=== PATIENT | female | born 1955 | race Caucasian/White ===

== ENCOUNTER 2017-09-05 20:10 | Emergency (ER) | payer MEDICARE, MEDICAID ==
[~2017-09-05] VITALS: Ht 5619.3 cm; Wt 38.4 kg
[~2017-09-05 20:10] MED LIST: ALB0.5UD IH; ATOR20TA PO; BAC10T PO; CALCIUM PO; CHOL4PAC2 PO; CLON1TAB4 PO; COM10T PO; ESCI10TA PO; FAMO-1 PO; FERR325T39 PO; FLUT1DIS4 INH; HYDR-565 PO; MULT-1085 PO; NITR100C6 PO; RANI-366 PO; ROPI3TAB PO; SUMA25TA35 PO; VITAMIN D3 PO
[2017-09-05] MEDS ORDERED: HYDROmorphone 2mg tablet PO ONE (22:25)
[2017-09-05 23:29] VITALS: BP 101/63
== END 2017-09-05 23:34 | disposition home or self-care (01) ==
LOC: ER 20:10
DX: M48.56XA Collapsed vertebra, not elsewhere classified, lumbar region, initial encounter for fracture (principal); G89.29 Other chronic pain; E78.00 Pure hypercholesterolemia, unspecified; J44.9 Chronic obstructive pulmonary disease, unspecified; K21.9 Gastro-esophageal reflux disease without esophagitis; E03.9 Hypothyroidism, unspecified; M81.0 Age-related osteoporosis without current pathological fracture; Z86.73 Personal history of transient ischemic attack (TIA), and cerebral infarction without residual deficits; Z90.49 Acquired absence of other specified parts of digestive tract; Z90.710 Acquired absence of both cervix and uterus; Z98.890 Other specified postprocedural states; Z88.0 Allergy status to penicillin; Z88.5 Allergy status to narcotic agent; Z88.1 Allergy status to other antibiotic agents; Z88.8 Allergy status to other drugs, medicaments and biological substances; Z79.899 Other long term (current) drug therapy
CPT/HCPCS: 72100; 99284

== ENCOUNTER 2017-10-29 06:33 | Day surgery (SDC) | payer MEDICARE, MEDICAID ==
[2017-10-29] VITALS (8 sets, daily range): BP systolic 115–137; BP diastolic 68–88
[~2017-10-29] VITALS: Ht 170.2 cm; Wt 37.9 kg
[~2017-10-29 06:33] MED LIST changes: -BAC10T PO; +BUPR100T13 PO; +BUPR1FIL5 SL; +BUPR75TA8 PO; -CHOL4PAC2 PO; +CIPR-230 PO; +DEXL60CA3 PO; +GABA-530 PO; +HYDR-3686 PO; +LOPE-155 PO; -NITR100C6 PO; +PREG50CA PO; +TIZA4CAP PO
[2017-10-29] MEDS ORDERED: clindamycin 600mg/D5W 50ml 50 ML IV ONE ×2 (06:48→08:54)
[2017-10-29] MEDS ORDERED: normal saline 1000ml 1,000 ML IV SCH ×2 (06:50→10:24)
[2017-10-29 07:13] LABS: BASOPHILS % (AUTO) 0.4 % (0-1); EOSINOPHILS # (AUTO) 0.7 X10'3 (0-0.9); EOSINOPHILS % (AUTO) 7.6 % (0-6); HEMATOCRIT 29.6 % (35.0-45.0); LYMPHOCYTES # (AUTO) 2.1 X10'3 (1.1-4.8); LYMPHOCYTES % (AUTO) 23.8 % (21-51); MEAN CORPUSCULAR HEMOGLOBIN 32.3 PG (27.0-31.0); MEAN CORPUSCULAR HGB CONC 33.7 % (33.0-36.5); MEAN CORPUSCULAR VOLUME 95.9 FL (78-98); MEAN PLATELET VOLUME 6.3 FL (7.4-10.4); MONOCYTES # (AUTO) 0.8 X10'3 (0-0.9); MONOCYTES % (AUTO) 8.6 % (2-12); NEUTROPHILS # (AUTO) 5.3 X10'3 (1.8-7.7); NEUTROPHILS % (AUTO) 59.6 % (42-75); PLATELET COUNT 549 X10'3 (140-440); RED BLOOD COUNT 3.08 X10'6 (4.20-5.60); RED CELL DISTRIBUTION WIDTH 16.5 % (11.5-14.5); WHITE BLOOD COUNT 8.9 X10'3 (4.5-11.0)
[2017-10-29] MEDS ORDERED: IBUP-1984 PO (07:17)
[2017-10-29] MEDS ORDERED: ARIP5TAB4 PO (07:17)
[2017-10-29] MEDS ORDERED: LIDOcaine 1%/PF (10mg/ml) 5ml vial SQ ONE (08:35)
[2017-10-29] MEDS ORDERED: diphenhydrAMINE 50 mg/ml inj IV ONE (08:35)
[2017-10-29] MEDS ORDERED: fentaNYL/PF 50MCG/1 ML 2ML syringe IV PRN (08:35)
[2017-10-29] MEDS ORDERED: midazolam 2 mg/2 ml injection IV PRN (08:35)
[2017-10-29] MEDS ORDERED: LIDOcaine 1%/PF (10mg/ml) 5ml vial ONE (08:46)
[2017-10-29] MEDS ORDERED: iohexol 300 MG/1 ML 50ml polymer ONE (08:46)
[2017-10-29] MEDS ORDERED: diphenhydrAMINE 50 mg/ml inj ONE (08:53)
[2017-10-29] MEDS ORDERED: midazolam 2 mg/2 ml injection ONE ×2 (08:54→09:34)
[2017-10-29] MEDS ORDERED: fentaNYL/PF 50MCG/1 ML 2ML syringe ONE ×2 (08:54→09:34)
== END 2017-10-29 12:15 | disposition home or self-care (01) ==
LOC: SSTAY O 06:33
PROVIDERS: ATTEND Radiology Vascular & Interventional Radiology
DX: M48.56XA Collapsed vertebra, not elsewhere classified, lumbar region, initial encounter for fracture (principal); M81.0 Age-related osteoporosis without current pathological fracture; E03.9 Hypothyroidism, unspecified; H44.9 Unspecified disorder of globe; K21.9 Gastro-esophageal reflux disease without esophagitis; M79.7 Fibromyalgia; E78.00 Pure hypercholesterolemia, unspecified; F41.9 Anxiety disorder, unspecified; J44.9 Chronic obstructive pulmonary disease, unspecified; E11.9 Type 2 diabetes mellitus without complications; F17.210 Nicotine dependence, cigarettes, uncomplicated; F32.9 Major depressive disorder, single episode, unspecified; Z88.0 Allergy status to penicillin; Z88.8 Allergy status to other drugs, medicaments and biological substances; Z86.74 Personal history of sudden cardiac arrest; Z72.89 Other problems related to lifestyle; Z88.1 Allergy status to other antibiotic agents; Z79.1 Long term (current) use of non-steroidal anti-inflammatories (NSAID); Z68.1 Body mass index [BMI] 19.9 or less, adult; Z85.41 Personal history of malignant neoplasm of cervix uteri; Z90.49 Acquired absence of other specified parts of digestive tract; Z86.73 Personal history of transient ischemic attack (TIA), and cerebral infarction without residual deficits; Z90.710 Acquired absence of both cervix and uterus; Z88.5 Allergy status to narcotic agent; Z79.891 Long term (current) use of opiate analgesic; Z79.899 Other long term (current) drug therapy; Z98.890 Other specified postprocedural states
CPT/HCPCS: 22514; 22515; 36415; 85025; 99152; 99153; J1200; J2001; J2250; J3010; J3490; J7030; Q9967; 88173; 88305; A4620

== ENCOUNTER 2017-12-08 15:41 | Inpatient (IN) | payer MEDICARE, MEDICAID ==
[~2017-12-08] VITALS: Ht 170.2 cm; Wt 39.5 kg
[~2017-12-08 15:41] MED LIST changes: +ARIP5TAB4 PO; -BUPR1FIL5 SL; -BUPR75TA8 PO; -CIPR-230 PO; +CLON-371 PO; -CLON1TAB4 PO; -FAMO-1 PO; -HYDR-565 PO; +IBUP-1984 PO
[2017-12-08] MEDS ORDERED: dexamethasone sod phosphate 10mg/ml inj IV STA (16:14)
[2017-12-08] MEDS ORDERED: normal saline 1000ML IV soln IV ONE (16:15)
[2017-12-08] MEDS ORDERED: CefTRIAXone 2gm/D5W 50ml 50 ML IV ONE (16:20)
[2017-12-08] MEDS ORDERED: fentaNYL/PF 50MCG/1 ML 2ML syringe IV ONE ×2 (16:30→17:40)
[2017-12-08] MEDS ORDERED: iohexol 350MG/ML 100ml bottle IV ONE (16:31)
[2017-12-08 16:40] LABS: BASOPHILS % (AUTO) 0.2 % (0-1); EOSINOPHILS # (AUTO) 0.8 X10'3 (0-0.9); EOSINOPHILS % (AUTO) 4.6 % (0-6); HEMATOCRIT 25.3 % (35.0-45.0); HEMOGLOBIN 8.4 g/dl (12.0-16.0); LYMPHOCYTES # (AUTO) 1.2 X10'3 (1.1-4.8); LYMPHOCYTES % (AUTO) 6.7 % (21-51); MEAN CORPUSCULAR HEMOGLOBIN 31.8 PG (27.0-31.0); MEAN CORPUSCULAR HGB CONC 33.4 % (33.0-36.5); MEAN CORPUSCULAR VOLUME 95.3 FL (78-98); MEAN PLATELET VOLUME 6.3 FL (7.4-10.4); MONOCYTES # (AUTO) 0.4 X10'3 (0-0.9); MONOCYTES % (AUTO) 2.3 % (2-12); NEUTROPHILS # (AUTO) 15.1 X10'3 (1.8-7.7); NEUTROPHILS % (AUTO) 86.2 % (42-75); PLATELET COUNT 627 X10'3 (140-440); RED BLOOD COUNT 2.66 X10'6 (4.20-5.60); RED CELL DISTRIBUTION WIDTH 16.4 % (11.5-14.5); WHITE BLOOD COUNT 17.5 X10'3 (4.5-11.0)
[2017-12-08 16:55] LABS: ALANINE AMINOTRANSFERASE 9 U/L (12-78); ALBUMIN 2.7 G/DL (3.4-5.0); ALBUMIN/GLOBULIN RATIO 0.7 (1.1-1.5); ALKALINE PHOSPHATASE 93 IU/L (46-116); ANION GAP 10 (8-16); ASPARTATE AMINO TRANSFERASE 15 U/L (10-37); BILIRUBIN,TOTAL 0.4 MG/DL (0.1-1.0); BLOOD UREA NITROGEN 17 MG/DL (7-18); BUN/CREATININE RATIO 12.1 (6.6-38.0); CALCIUM 8.4 MG/DL (8.5-10.1); CHLORIDE 98 MMOL/L (99-107); CREATININE 1.41 MG/DL (0.40-0.90); GLUCOSE 118 MG/DL (70-104); POTASSIUM 3.7 MMOL/L (3.5-5.1); SODIUM 132 MMOL/L (135-145); TOTAL CARBON DIOXIDE 24.2 MMOL/L (24-32); TOTAL PROTEIN 6.8 G/DL (6.4-8.2); eGFR 38 ML/MIN
[2017-12-08] MEDS ORDERED: diatrozoate meglu/diatrozoate sod (37% iodine) 120ML oral solution ONE (18:36)
[2017-12-08] MEDS ORDERED: mag hydrox/Alum hydrox/simeth 30ml oral suspension PO PRN (20:30)
[2017-12-08] MEDS: normal saline 1000ml 1,000 ML IV SCH (20:30)
[2017-12-08] MEDS ORDERED: magnesium hydroxide 30ml (MOM) UD suspension PO PRN (20:30)
[2017-12-08] MEDS ORDERED: ondansetron/PF 4mg/2ml inj IV PRN (20:30)
[2017-12-08] MEDS ORDERED: HYDROcodone & chlorphen. 10-8mg/5ml oral susp. PO PRN (20:50)
[2017-12-08] MEDS ORDERED: ESCI20TA PO (21:05)
[2017-12-08] MEDS ORDERED: RANI150T44 PO (21:05)
[2017-12-08] MEDS ORDERED: LOPE1TAB46 PO (21:05)
[2017-12-08] MEDS ORDERED: ROPI3TAB PO (21:05)
[2017-12-08] MEDS ORDERED: CHOL400C8 PO (21:05)
[2017-12-08] MEDS ORDERED: NAPR220T67 PO (21:06)
[2017-12-08] MEDS ORDERED: hydrOXYzine 25 MG tablet PO PRN (21:40)
[2017-12-08] MEDS ORDERED: albuterol 2.5 MG/3 ML nebule NEB PRN ×2 (21:45→21:50)
[2017-12-08 23:00] VITALS: BP 126/75
[2017-12-08] MEDS: morphine 4 MG/ML inj SYRINge IV PRN (23:32)
[2017-12-08] MEDS: benzonatate 100mg capsule PO SCH (23:33)
[2017-12-09] MEDS: ROPINIRole 1mg tablet PO SCH ×4 (01:44→19:35)
[2017-12-09 05:03] LABS: BASOPHILS % (AUTO) 0 % (0-1); EOSINOPHILS # (AUTO) 0.1 X10'3 (0-0.9); EOSINOPHILS % (AUTO) 0.3 % (0-6); HEMATOCRIT 25.6 % (35.0-45.0); HEMOGLOBIN 8.5 g/dl (12.0-16.0); LYMPHOCYTES # (AUTO) 0.7 X10'3 (1.1-4.8); LYMPHOCYTES % (AUTO) 3.2 % (21-51); MEAN CORPUSCULAR HEMOGLOBIN 31.8 PG (27.0-31.0); MEAN CORPUSCULAR HGB CONC 33.1 % (33.0-36.5); MEAN CORPUSCULAR VOLUME 96.2 FL (78-98); MEAN PLATELET VOLUME 6.8 FL (7.4-10.4); MONOCYTES # (AUTO) 0.4 X10'3 (0-0.9); MONOCYTES % (AUTO) 1.8 % (2-12); NEUTROPHILS # (AUTO) 21.1 X10'3 (1.8-7.7); NEUTROPHILS % (AUTO) 94.7 % (42-75); PLATELET COUNT 617 X10'3 (140-440); RED BLOOD COUNT 2.66 X10'6 (4.20-5.60); RED CELL DISTRIBUTION WIDTH 15.8 % (11.5-14.5); WHITE BLOOD COUNT 22.3 X10'3 (4.5-11.0)
[2017-12-09] MEDS: morphine 4 MG/ML inj SYRINge IV PRN ×3 (05:13→19:33)
[2017-12-09 05:35] LABS: ALANINE AMINOTRANSFERASE 8 U/L (12-78); ALBUMIN 2.3 G/DL (3.4-5.0); ALBUMIN/GLOBULIN RATIO 0.6 (1.1-1.5); ALKALINE PHOSPHATASE 91 IU/L (46-116); ASPARTATE AMINO TRANSFERASE 14 U/L (10-37); BILIRUBIN,TOTAL 0.2 MG/DL (0.1-1.0); BLOOD UREA NITROGEN 15 MG/DL (7-18); CALCIUM 8.4 MG/DL (8.5-10.1); CHLORIDE 108 MMOL/L (99-107); CREATININE 1.15 MG/DL (0.40-0.90); GLUCOSE 139 MG/DL (70-104); POTASSIUM 4.1 MMOL/L (3.5-5.1); TOTAL CARBON DIOXIDE 25.4 MMOL/L (24-32); TOTAL PROTEIN 6.4 G/DL (6.4-8.2); eGFR 48 ML/MIN
[2017-12-09 05:47] LABS: ANION GAP 8 (8-16); SODIUM 141 MMOL/L (135-145)
[2017-12-09 07:00] VITALS: BP 115/73
[2017-12-09] MEDS: citalopram 20mg tablet PO SCH (08:56)
[2017-12-09] MEDS: benzonatate 100mg capsule PO SCH ×3 (08:56→21:29)
[2017-12-09] MEDS: buPROPion 100mg tablet PO SCH ×3 (08:56→21:28)
[2017-12-09] MEDS: clonazePAM 1mg tablet PO SCH ×2 (08:57→19:34)
[2017-12-09] MEDS: pantoprazole 40mg Tablet.DR PO SCH (08:57)
[2017-12-09] MEDS: atorvastatin 20mg tablet PO SCH (08:57)
[2017-12-09] MEDS: heparin, porcine 5000 units/ml vial SQ SCH ×2 (08:58→19:36)
[2017-12-09] MEDS: piperacillin/tazo 3.375gm/50ml 50 ML IV SCH ×2 (10:33→18:13)
[2017-12-09 11:00] VITALS: BP 103/57
[2017-12-09] MEDS: BUDESONIDE 0.25 MG/2 ML AMPUL.NEB IH SCH ×2 (11:00→19:53)
[2017-12-09] MEDS: albuterol 2.5 MG/3 ML nebule NEB SCH ×3 (11:00→23:54)
[2017-12-09 18:00] VITALS: BP 124/76
[2017-12-09] MEDS: lactobacillus rhamnosus 10,000 MMU CELLS/CAPSULE PO SCH (19:34)
[2017-12-09] MEDS: gabapentin 100mg capsule PO SCH (21:30)
[2017-12-10] VITALS: BP 106/59
[2017-12-10] MEDS: morphine 4 MG/ML inj SYRINge IV PRN ×2 (00:42→11:08)
[2017-12-10] MEDS: piperacillin/tazo 3.375gm/50ml 50 ML IV SCH ×3 (00:43→16:14)
[2017-12-10] MEDS: normal saline 1000ml 1,000 ML IV SCH (00:43)
[2017-12-10] MEDS: ROPINIRole 1mg tablet PO SCH (03:26)
[2017-12-10] MEDS: albuterol 2.5 MG/3 ML nebule NEB SCH ×6 (03:54→23:14)
[2017-12-10] MEDS: acetaminophen 325mg tablet PO PRN (05:20)
[2017-12-10 06:07] LABS: ALANINE AMINOTRANSFERASE 9 U/L (12-78); ALBUMIN/GLOBULIN RATIO 0.5 (1.1-1.5); ALKALINE PHOSPHATASE 110 IU/L (46-116); ANION GAP 8 (8-16); ASPARTATE AMINO TRANSFERASE 14 U/L (10-37); BILIRUBIN,TOTAL 0.4 MG/DL (0.1-1.0); BLOOD UREA NITROGEN 10 MG/DL (7-18); BUN/CREATININE RATIO 9.7 (6.6-38.0); CALCIUM 8.2 MG/DL (8.5-10.1); CHLORIDE 104 MMOL/L (99-107); CREATININE 1.03 MG/DL (0.40-0.90); GLUCOSE 94 MG/DL (70-104); POTASSIUM 3.3 MMOL/L (3.5-5.1); SODIUM 137 MMOL/L (135-145); TOTAL CARBON DIOXIDE 25.4 MMOL/L (24-32); eGFR 54 ML/MIN
[2017-12-10 06:39] LABS: BASOPHILS % (AUTO) 0.1 % (0-1); EOSINOPHILS # (AUTO) 1.2 X10'3 (0-0.9); EOSINOPHILS % (AUTO) 7.9 % (0-6); HEMATOCRIT 24.4 % (35.0-45.0); HEMOGLOBIN 8.1 g/dl (12.0-16.0); LYMPHOCYTES # (AUTO) 1.2 X10'3 (1.1-4.8); LYMPHOCYTES % (AUTO) 7.4 % (21-51); MEAN CORPUSCULAR HEMOGLOBIN 32.2 PG (27.0-31.0); MEAN CORPUSCULAR HGB CONC 33.3 % (33.0-36.5); MEAN CORPUSCULAR VOLUME 96.7 FL (78-98); MEAN PLATELET VOLUME 7.3 FL (7.4-10.4); MONOCYTES # (AUTO) 0.6 X10'3 (0-0.9); MONOCYTES % (AUTO) 3.9 % (2-12); NEUTROPHILS # (AUTO) 12.8 X10'3 (1.8-7.7); NEUTROPHILS % (AUTO) 80.7 % (42-75); PLATELET COUNT 579 X10'3 (140-440); RED BLOOD COUNT 2.52 X10'6 (4.20-5.60); RED CELL DISTRIBUTION WIDTH 15.6 % (11.5-14.5); WHITE BLOOD COUNT 15.8 X10'3 (4.5-11.0)
[2017-12-10 07:00] VITALS: BP 135/82
[2017-12-10] MEDS: BUDESONIDE 0.25 MG/2 ML AMPUL.NEB IH SCH ×2 (08:00→19:24)
[2017-12-10] MEDS: pantoprazole 40mg Tablet.DR PO SCH (08:20)
[2017-12-10] MEDS: heparin, porcine 5000 units/ml vial SQ SCH ×2 (08:20→19:49)
[2017-12-10] MEDS: buPROPion 100mg tablet PO SCH ×3 (08:21→21:45)
[2017-12-10] MEDS: citalopram 20mg tablet PO SCH (08:21)
[2017-12-10] MEDS: atorvastatin 20mg tablet PO SCH (08:21)
[2017-12-10] MEDS: lactobacillus rhamnosus 10,000 MMU CELLS/CAPSULE PO SCH ×2 (08:21→19:49)
[2017-12-10] MEDS: benzonatate 100mg capsule PO SCH ×3 (08:21→21:45)
[2017-12-10 11:00] VITALS: BP 134/68
[2017-12-10] MEDS ORDERED: potassium Cl 20 mEq SR tablet PO PRN (15:45)
[2017-12-10] MEDS ORDERED: potassium Cl 40MEQ/NS 500ml 500 ML IV PRN ×2 (15:45)
[2017-12-10] MEDS: potassium Cl 20 mEq SR tablet PO PRN ×3 (16:14→21:49)
[2017-12-10 18:00] VITALS: BP 104/70
[2017-12-10] MEDS ORDERED: HYDROmorphone 1 mg/ml syringe IV PRN (19:10)
[2017-12-10] MEDS: gabapentin 100mg capsule PO SCH (21:45)
[2017-12-10] MEDS: HYDROmorphone 1 mg/ml syringe IV PRN (21:49)
[2017-12-11] VITALS: BP 100/65
[2017-12-11] MEDS: piperacillin/tazo 3.375gm/50ml 50 ML IV SCH ×4 (00:36→23:02)
[2017-12-11] MEDS: HYDROmorphone 1 mg/ml syringe IV PRN ×5 (01:55→23:02)
[2017-12-11] MEDS: albuterol 2.5 MG/3 ML nebule NEB SCH ×6 (03:02→23:48)
[2017-12-11 06:23] LABS: BASOPHILS % (AUTO) 0.1 % (0-1); EOSINOPHILS # (AUTO) 1.3 X10'3 (0-0.9); EOSINOPHILS % (AUTO) 9.9 % (0-6); HEMATOCRIT 24.9 % (35.0-45.0); HEMOGLOBIN 8.4 g/dl (12.0-16.0); LYMPHOCYTES # (AUTO) 1.1 X10'3 (1.1-4.8); LYMPHOCYTES % (AUTO) 8.2 % (21-51); MEAN CORPUSCULAR HEMOGLOBIN 32.2 PG (27.0-31.0); MEAN CORPUSCULAR HGB CONC 33.9 % (33.0-36.5); MEAN PLATELET VOLUME 6.9 FL (7.4-10.4); MONOCYTES # (AUTO) 0.5 X10'3 (0-0.9); MONOCYTES % (AUTO) 3.9 % (2-12); NEUTROPHILS # (AUTO) 10.1 X10'3 (1.8-7.7); NEUTROPHILS % (AUTO) 77.9 % (42-75); PLATELET COUNT 594 X10'3 (140-440); RED BLOOD COUNT 2.62 X10'6 (4.20-5.60); RED CELL DISTRIBUTION WIDTH 16.3 % (11.5-14.5); WHITE BLOOD COUNT 12.9 X10'3 (4.5-11.0)
[2017-12-11 06:56] LABS: ALANINE AMINOTRANSFERASE 10 U/L (12-78); ALBUMIN/GLOBULIN RATIO 0.5 (1.1-1.5); ALKALINE PHOSPHATASE 106 IU/L (46-116); ANION GAP 6 (8-16); ASPARTATE AMINO TRANSFERASE 13 U/L (10-37); BILIRUBIN,TOTAL 0.4 MG/DL (0.1-1.0); BLOOD UREA NITROGEN 6 MG/DL (7-18); BUN/CREATININE RATIO 5.3 (6.6-38.0); CALCIUM 8.7 MG/DL (8.5-10.1); CHLORIDE 108 MMOL/L (99-107); CREATININE 1.14 MG/DL (0.40-0.90); GLUCOSE 82 MG/DL (70-104); MAGNESIUM 1.6 MG/DL (1.5-2.4); POTASSIUM 3.6 MMOL/L (3.5-5.1); SODIUM 142 MMOL/L (135-145); TOTAL PROTEIN 6.1 G/DL (6.4-8.2); eGFR 48 ML/MIN
[2017-12-11 07:00] VITALS: BP 124/75
[2017-12-11] MEDS: BUDESONIDE 0.25 MG/2 ML AMPUL.NEB IH SCH ×2 (07:33→19:37)
[2017-12-11] MEDS: citalopram 20mg tablet PO SCH (07:42)
[2017-12-11] MEDS: benzonatate 100mg capsule PO SCH ×3 (07:43→21:31)
[2017-12-11] MEDS: buPROPion 100mg tablet PO SCH ×3 (07:43→21:32)
[2017-12-11] MEDS: heparin, porcine 5000 units/ml vial SQ SCH ×2 (07:43→20:04)
[2017-12-11] MEDS: atorvastatin 20mg tablet PO SCH (07:43)
[2017-12-11] MEDS: lactobacillus rhamnosus 10,000 MMU CELLS/CAPSULE PO SCH ×2 (07:43→20:03)
[2017-12-11] MEDS: pantoprazole 40mg Tablet.DR PO SCH (07:43)
[2017-12-11 11:57] VITALS: BP 106/68
[2017-12-11 20:00] VITALS: BP 123/68
[2017-12-11] MEDS: acetaminophen 325mg tablet PO PRN (20:04)
[2017-12-11] MEDS ORDERED: PREGABALIN PO SCH (21:00)
[2017-12-11] MEDS: ROPINIRole 1mg tablet PO SCH (21:31)
[2017-12-11] MEDS: pregabalin 75mg capsule PO SCH (21:31)
[2017-12-11] MEDS: gabapentin 100mg capsule PO SCH (21:32)
[2017-12-11] MEDS ORDERED: HYDROmorphone inj. 0.5 MG/0.5 ML DISP.SYRIN IV ONE (21:45)
[2017-12-11] MEDS ORDERED: acetaminophen 325mg tablet PO PRN ×3 (21:45→23:35)
[2017-12-11] MEDS ORDERED: HYDROmorphone 1 mg/ml syringe ONE (21:54)
[2017-12-11] MEDS ORDERED: magnesium 4gm in 100ml NS 100 ML IV PRN (23:15)
[2017-12-12] VITALS: BP 109/68
[2017-12-12] MEDS: HYDROmorphone 1 mg/ml syringe IV PRN ×3 (03:33→21:13)
[2017-12-12] MEDS: albuterol 2.5 MG/3 ML nebule NEB SCH ×6 (03:50→23:05)
[2017-12-12 06:40] LABS: BASOPHILS % (AUTO) 0.1 % (0-1); EOSINOPHILS # (AUTO) 1.3 X10'3 (0-0.9); EOSINOPHILS % (AUTO) 9.8 % (0-6); HEMATOCRIT 25.1 % (35.0-45.0); HEMOGLOBIN 8.4 g/dl (12.0-16.0); LYMPHOCYTES # (AUTO) 1.1 X10'3 (1.1-4.8); MEAN CORPUSCULAR HEMOGLOBIN 31.8 PG (27.0-31.0); MEAN CORPUSCULAR HGB CONC 33.3 % (33.0-36.5); MEAN CORPUSCULAR VOLUME 95.4 FL (78-98); MEAN PLATELET VOLUME 6.9 FL (7.4-10.4); MONOCYTES # (AUTO) 0.8 X10'3 (0-0.9); MONOCYTES % (AUTO) 6.3 % (2-12); NEUTROPHILS # (AUTO) 9.9 X10'3 (1.8-7.7); NEUTROPHILS % (AUTO) 75.8 % (42-75); PLATELET COUNT 597 X10'3 (140-440); RED BLOOD COUNT 2.63 X10'6 (4.20-5.60); RED CELL DISTRIBUTION WIDTH 16.5 % (11.5-14.5); WHITE BLOOD COUNT 13.1 X10'3 (4.5-11.0)
[2017-12-12 07:04] LABS: ALANINE AMINOTRANSFERASE 11 U/L (12-78); ALBUMIN 1.9 G/DL (3.4-5.0); ALBUMIN/GLOBULIN RATIO 0.4 (1.1-1.5); ALKALINE PHOSPHATASE 128 IU/L (46-116); ANION GAP 10 (8-16); ASPARTATE AMINO TRANSFERASE 15 U/L (10-37); BILIRUBIN,TOTAL 0.3 MG/DL (0.1-1.0); BLOOD UREA NITROGEN 5 MG/DL (7-18); BUN/CREATININE RATIO 4.4 (6.6-38.0); CALCIUM 8.7 MG/DL (8.5-10.1); CHLORIDE 103 MMOL/L (99-107); CREATININE 1.14 MG/DL (0.40-0.90); GLUCOSE 92 MG/DL (70-104); MAGNESIUM 1.4 MG/DL (1.5-2.4); POTASSIUM 3.5 MMOL/L (3.5-5.1); SODIUM 139 MMOL/L (135-145); TOTAL CARBON DIOXIDE 26.3 MMOL/L (24-32); TOTAL PROTEIN 6.4 G/DL (6.4-8.2); eGFR 48 ML/MIN
[2017-12-12] MEDS: citalopram 20mg tablet PO SCH (07:32)
[2017-12-12] MEDS: ROPINIRole 1mg tablet PO SCH ×3 (07:32→20:53)
[2017-12-12] MEDS: buPROPion 100mg tablet PO SCH ×3 (07:32→20:53)
[2017-12-12] MEDS: benzonatate 100mg capsule PO SCH ×3 (07:32→20:53)
[2017-12-12] MEDS: heparin, porcine 5000 units/ml vial SQ SCH ×2 (07:33→20:52)
[2017-12-12] MEDS: atorvastatin 20mg tablet PO SCH (07:33)
[2017-12-12] MEDS: pantoprazole 40mg Tablet.DR PO SCH (07:33)
[2017-12-12] MEDS: lactobacillus rhamnosus 10,000 MMU CELLS/CAPSULE PO SCH ×2 (07:33→20:52)
[2017-12-12] MEDS: piperacillin/tazo 3.375gm/50ml 50 ML IV SCH ×2 (07:33→16:30)
[2017-12-12] MEDS: BUDESONIDE 0.25 MG/2 ML AMPUL.NEB IH SCH ×2 (07:48→19:56)
[2017-12-12 08:00] VITALS: BP 127/84
[2017-12-12 11:28] VITALS: BP 147/85
[2017-12-12] MEDS: magnesium Cl slow-release 64mg tablet PO PRN ×2 (12:46→21:13)
[2017-12-12] MEDS ORDERED: magnesium Cl slow-release 64mg tablet PO PRN (17:20)
[2017-12-12] MEDS ORDERED: magnesium/D5W IVPB 50 ML IV PRN (17:20)
[2017-12-12] MEDS ORDERED: magnesium 4gm in 100ml NS 100 ML IV PRN (17:20)
[2017-12-12 18:11] LABS: ABG BASE EXCESS -2.2 mmol/L (-2.0-3.0); ABG HCO3 22.2 mmol/L (22.0-26.0); ABG OXYGEN SATURATION 89.5 % (95-98); ABG PCO2 (T) 36.7 mmHg (32.0-45.0); ABG PO2 (T) 63.2 mmHg (83-108); ALLEN'S TEST Positive; FCOHb 0.5 % (0.5-1.5); FLOW 2 L/min; FMetHb 0.3 % (0.3-1.12); FO2Hb 88.8 % (94-100); TOTAL HEMOGLOBIN 11.6 G/dl (12.0-16.0)
[2017-12-12 18:50] LABS: C-REACTIVE PROTEIN 18.58 MG/DL (0.0-0.5); TROPONIN I < 0.04 NG/ML (0.0-0.05)
[2017-12-12 19:30] VITALS: BP 104/69
[2017-12-12] MEDS: doxycycline inj 100 MG in normal saline 100ml IV soln 100 ML IV SCH (20:52)
[2017-12-12] MEDS: methylPREDNISolone sod succ 125mg/2ml vial IV SCH (20:52)
[2017-12-12] MEDS: gabapentin 100mg capsule PO SCH (20:53)
[2017-12-12] MEDS: pregabalin 75mg capsule PO SCH (20:53)
[2017-12-12 23:55] VITALS: BP 132/74
[2017-12-13] MEDS: albuterol 2.5 MG/3 ML nebule NEB SCH ×4 (03:35→15:41)
[2017-12-13 05:48] LABS: BASOPHILS % (AUTO) 0 % (0-1); EOSINOPHILS # (AUTO) 0.2 X10'3 (0-0.9); EOSINOPHILS % (AUTO) 2.1 % (0-6); HEMATOCRIT 23.8 % (35.0-45.0); LYMPHOCYTES # (AUTO) 0.6 X10'3 (1.1-4.8); LYMPHOCYTES % (AUTO) 5.2 % (21-51); MEAN CORPUSCULAR HEMOGLOBIN 31.7 PG (27.0-31.0); MEAN CORPUSCULAR HGB CONC 33.5 % (33.0-36.5); MEAN CORPUSCULAR VOLUME 94.7 FL (78-98); MEAN PLATELET VOLUME 6.7 FL (7.4-10.4); MONOCYTES # (AUTO) 0.1 X10'3 (0-0.9); MONOCYTES % (AUTO) 1.2 % (2-12); NEUTROPHILS # (AUTO) 9.8 X10'3 (1.8-7.7); NEUTROPHILS % (AUTO) 91.5 % (42-75); PLATELET COUNT 601 X10'3 (140-440); RED BLOOD COUNT 2.52 X10'6 (4.20-5.60); WHITE BLOOD COUNT 10.7 X10'3 (4.5-11.0)
[2017-12-13 06:06] LABS: ALANINE AMINOTRANSFERASE < 6 U/L (12-78); ALBUMIN 1.9 G/DL (3.4-5.0); ALBUMIN/GLOBULIN RATIO 0.4 (1.1-1.5); ALKALINE PHOSPHATASE 127 IU/L (46-116); ANION GAP 11 (8-16); ASPARTATE AMINO TRANSFERASE 13 U/L (10-37); BILIRUBIN,TOTAL 0.2 MG/DL (0.1-1.0); BLOOD UREA NITROGEN 6 MG/DL (7-18); BUN/CREATININE RATIO 4.9 (6.6-38.0); CALCIUM 8.5 MG/DL (8.5-10.1); CHLORIDE 100 MMOL/L (99-107); CREATININE 1.23 MG/DL (0.40-0.90); GLUCOSE 201 MG/DL (70-104); MAGNESIUM 1.5 MG/DL (1.5-2.4); POTASSIUM 3.7 MMOL/L (3.5-5.1); SODIUM 136 MMOL/L (135-145); TOTAL PROTEIN 6.5 G/DL (6.4-8.2); eGFR 44 ML/MIN
[2017-12-13 07:04] VITALS: BP 117/76
[2017-12-13] MEDS: BUDESONIDE 0.25 MG/2 ML AMPUL.NEB IH SCH (07:14)
[2017-12-13] MEDS: pantoprazole 40mg Tablet.DR PO SCH (07:40)
[2017-12-13] MEDS: buPROPion 100mg tablet PO SCH ×2 (07:40→12:55)
[2017-12-13] MEDS: ROPINIRole 1mg tablet PO SCH ×2 (07:40→12:55)
[2017-12-13] MEDS: benzonatate 100mg capsule PO SCH ×2 (07:40→12:55)
[2017-12-13] MEDS: heparin, porcine 5000 units/ml vial SQ SCH (07:40)
[2017-12-13] MEDS: methylPREDNISolone sod succ 125mg/2ml vial IV SCH (07:40)
[2017-12-13] MEDS: citalopram 20mg tablet PO SCH (07:41)
[2017-12-13] MEDS: lactobacillus rhamnosus 10,000 MMU CELLS/CAPSULE PO SCH (07:41)
[2017-12-13] MEDS: atorvastatin 20mg tablet PO SCH (07:41)
[2017-12-13] MEDS: HYDROmorphone 1 mg/ml syringe IV PRN (07:44)
[2017-12-13] MEDS: doxycycline inj 100 MG in normal saline 100ml IV soln 100 ML IV SCH (07:46)
[2017-12-13] MEDS ORDERED: HYDROcodone/acetaminophen 5mg/325mg tablet PO PRN (10:55)
[2017-12-13 11:56] VITALS: BP 134/80
[2017-12-13] MEDS ORDERED: Protein Shake (high protein) 240ml (8oz) cup PO SCH (18:00)
== END 2017-12-13 16:10 | disposition home health service (06) | DRG 199 ==
LOC: ER 15:41 → ED HOLD 20:30 → SUR 3N 22:30
PROVIDERS: ADMIT Internal Medicine; ATTEND Family Medicine
DX: J98.2 Interstitial emphysema (principal); J18.9 Pneumonia, unspecified organism; E43 Unspecified severe protein-calorie malnutrition; J93.9 Pneumothorax, unspecified; Z68.1 Body mass index [BMI] 19.9 or less, adult; J44.0 Chronic obstructive pulmonary disease with (acute) lower respiratory infection; J44.1 Chronic obstructive pulmonary disease with (acute) exacerbation; M48.50XA Collapsed vertebra, not elsewhere classified, site unspecified, initial encounter for fracture; E03.9 Hypothyroidism, unspecified; E78.00 Pure hypercholesterolemia, unspecified; G89.29 Other chronic pain; K21.9 Gastro-esophageal reflux disease without esophagitis; M81.0 Age-related osteoporosis without current pathological fracture; R09.02 Hypoxemia; F32.9 Major depressive disorder, single episode, unspecified; F41.9 Anxiety disorder, unspecified; M54.9 Dorsalgia, unspecified; F17.200 Nicotine dependence, unspecified, uncomplicated; Z56.0 Unemployment, unspecified; Z90.710 Acquired absence of both cervix and uterus; Z88.0 Allergy status to penicillin; Z88.6 Allergy status to analgesic agent; Z88.1 Allergy status to other antibiotic agents; Z88.8 Allergy status to other drugs, medicaments and biological substances; Z79.899 Other long term (current) drug therapy; Z85.41 Personal history of malignant neoplasm of cervix uteri; Z86.73 Personal history of transient ischemic attack (TIA), and cerebral infarction without residual deficits
CPT/HCPCS: 36415; 36600; 70360; 70490; 71045; 71250; 74220; 80053; 82803; 82948; 83605; 83735; 83880; 84100; 84145; 84484; 85018; 85025; 85651; 86140; 87040; 87070; 93005; 94640; 94760; 96365; 96366; 96375; 96376; 99291; 99292; A4315; J0696; J1100; J1170; J1644; J2270; J2543; J2930; J3010; J3490; J7030; Q9963; Q9967

== ENCOUNTER 2017-12-30 10:21 | Emergency (ER) | payer MEDICARE, MEDICAID ==
[~2017-12-30] VITALS: Ht 160 cm; Wt 38.0 kg
[~2017-12-30 10:21] MED LIST changes: -ARIP5TAB4 PO; -ATOR20TA PO; -CALCIUM PO; -CLON-371 PO; -ESCI10TA PO; +ESCI20TA PO; -FERR325T39 PO; -GABA-530 PO; -IBUP-1984 PO; -LOPE-155 PO; +LOPE1TAB46 PO; -MULT-1085 PO; -RANI-366 PO; +RANI150T44 PO; -VITAMIN D3 PO
[2017-12-30 11:02] LABS: BASOPHILS % (AUTO) 0.1 % (0-1); EOSINOPHILS # (AUTO) 0.9 X10'3 (0-0.9); EOSINOPHILS % (AUTO) 6.2 % (0-6); HEMATOCRIT 29.1 % (35.0-45.0); HEMOGLOBIN 9.7 g/dl (12.0-16.0); LYMPHOCYTES # (AUTO) 1.7 X10'3 (1.1-4.8); LYMPHOCYTES % (AUTO) 11.6 % (21-51); MEAN CORPUSCULAR HEMOGLOBIN 30.9 PG (27.0-31.0); MEAN CORPUSCULAR HGB CONC 33.4 % (33.0-36.5); MEAN CORPUSCULAR VOLUME 92.6 FL (78-98); MEAN PLATELET VOLUME 6.6 FL (7.4-10.4); MONOCYTES # (AUTO) 0.9 X10'3 (0-0.9); MONOCYTES % (AUTO) 5.8 % (2-12); NEUTROPHILS # (AUTO) 11.2 X10'3 (1.8-7.7); NEUTROPHILS % (AUTO) 76.3 % (42-75); PLATELET COUNT 803 X10'3 (140-440); RED BLOOD COUNT 3.14 X10'6 (4.20-5.60); RED CELL DISTRIBUTION WIDTH 16.7 % (11.5-14.5); WHITE BLOOD COUNT 14.7 X10'3 (4.5-11.0)
[2017-12-30 11:18] LABS: ALANINE AMINOTRANSFERASE 11 U/L (12-78); ALBUMIN 2.5 G/DL (3.4-5.0); ALBUMIN/GLOBULIN RATIO 0.4 (1.1-1.5); ALKALINE PHOSPHATASE 117 IU/L (46-116); ANION GAP 2 (8-16); ASPARTATE AMINO TRANSFERASE 13 U/L (10-37); BILIRUBIN,TOTAL 0.3 MG/DL (0.1-1.0); BLOOD UREA NITROGEN 22 MG/DL (7-18); BUN/CREATININE RATIO 16.9 (6.6-38.0); CALCIUM 9.2 MG/DL (8.5-10.1); CHLORIDE 97 MMOL/L (99-107); GLUCOSE 100 MG/DL (70-104); SODIUM 135 MMOL/L (135-145); TOTAL CARBON DIOXIDE 36.3 MMOL/L (24-32); TOTAL PROTEIN 8.4 G/DL (6.4-8.2); eGFR 41 ML/MIN
[2017-12-30 11:25] LABS: INR 0.9 INR; PARTIAL THROMBOPLASTIN TIME 27 SECONDS (22-32); PROTHROMBIN TIME 9.8 SECONDS (9.0-12.0)
[2017-12-30] MEDS ORDERED: normal saline 1000ML IV soln IVB ONE (12:25)
[2017-12-30] MEDS ORDERED: fentaNYL/PF 50MCG/1 ML 2ML syringe IV ONE ×2 (12:25→13:30)
[2017-12-30] MEDS ORDERED: normal saline 1000ml 1,000 ML IV ONE (12:25)
[2017-12-30] MEDS ORDERED: CefTRIAXone/D5W-Rocephin 1gm 50 ML IV ONE (12:35)
[2017-12-30] MEDS ORDERED: azithromycin/NS 500mg/250ml 250 ML IV ONE (12:35)
[2017-12-30] MEDS ORDERED: acetaminophen 325mg tablet PO ONE ×2 (13:25)
[2017-12-30] MEDS ORDERED: morphine 4 MG/ML inj SYRINge IV ONE (14:50)
[2017-12-30] MEDS ORDERED: ondansetron/PF 4mg/2ml inj IV ONE (14:50)
[2017-12-30 15:24] LABS: CLARITY,URINE CLEAR (Clear); COLOR,URINE YELLOW (Yellow); GLUCOSE, URINE NEGATIVE (Neg); KETONES,URINE NEGATIVE (Neg); LEUKOCYTE ESTERASE ,URINE NEGATIVE (Neg); NITRITES, URINE NEGATIVE (Neg); OCCULT BLOOD,URINE NEGATIVE (Neg); PROTEIN,URINE 30 mg/dl (Neg); UROBILINOGEN,URINE 0.2 E.U/dL (0.2-1.0)
[2017-12-30 15:31] LABS: UA COLLECTION TYPE CLN CATCH MIDSTREAM
[2017-12-30 15:32] LABS: SQUAMOUS EPITHELIAL CELL,UR FEW /LPF (FEW)
[2017-12-30 15:33] LABS: AMORPHOUS PHOSPHATES 2+; BACTERIA,URINE 1+ /HPF (Neg); MUCUS STRANDS FEW /LPF (Neg)
[2017-12-30 15:34] LABS: RBC,URINE NONE SEEN /HPF (0-2); WBC,URINE NONE SEEN /HPF (0-4)
[2017-12-30] MEDS ORDERED: TRAM50TA2 PO (15:59)
[2017-12-30 16:30] VITALS: BP 110/76
== END 2017-12-30 16:54 | disposition home or self-care (01) ==
LOC: ER 10:21
DX: G89.29 Other chronic pain (principal); R06.02 Shortness of breath; R06.00 Dyspnea, unspecified; R05 Cough; R61 Generalized hyperhidrosis; R10.31 Right lower quadrant pain; E78.00 Pure hypercholesterolemia, unspecified; J44.9 Chronic obstructive pulmonary disease, unspecified; K21.9 Gastro-esophageal reflux disease without esophagitis; E03.9 Hypothyroidism, unspecified; Z90.49 Acquired absence of other specified parts of digestive tract; Z90.710 Acquired absence of both cervix and uterus; Z98.890 Other specified postprocedural states; Z56.0 Unemployment, unspecified; Z85.89 Personal history of malignant neoplasm of other organs and systems; M81.0 Age-related osteoporosis without current pathological fracture; Z86.73 Personal history of transient ischemic attack (TIA), and cerebral infarction without residual deficits; Z88.0 Allergy status to penicillin; Z88.5 Allergy status to narcotic agent; Z88.8 Allergy status to other drugs, medicaments and biological substances; Z79.899 Other long term (current) drug therapy
CPT/HCPCS: 36415; 71045; 71250; 74176; 80053; 81001; 83605; 84443; 84484; 85025; 85610; 85730; 87040; 93005; 96361; 96365; 96367; 96375; 96376; 99285; J0456; J0696; J2270; J2405; J3010; J7030

== ENCOUNTER 2018-03-23 15:00 | Emergency (ER) | payer MEDICARE, MEDICAID ==
[~2018-03-23] VITALS: Ht 170.2 cm; Wt 37.2 kg
[2018-03-23] MEDS ORDERED: HYDROcodone/acetaminophen 10/325mg tab PO ONE (17:15)
[2018-03-23 17:34] LABS: BASOPHILS % (AUTO) 0.2 % (0-1); EOSINOPHILS # (AUTO) 1.1 X10'3 (0-0.9); EOSINOPHILS % (AUTO) 9.5 % (0-6); HEMATOCRIT 31.3 % (35.0-45.0); HEMOGLOBIN 10.1 g/dl (12.0-16.0); LYMPHOCYTES # (AUTO) 2.3 X10'3 (1.1-4.8); MEAN CORPUSCULAR HEMOGLOBIN 28.6 PG (27.0-31.0); MEAN CORPUSCULAR HGB CONC 32.2 % (33.0-36.5); MEAN CORPUSCULAR VOLUME 88.6 FL (78-98); MEAN PLATELET VOLUME 6.7 FL (7.4-10.4); MONOCYTES # (AUTO) 0.9 X10'3 (0-0.9); MONOCYTES % (AUTO) 7.3 % (2-12); NEUTROPHILS # (AUTO) 7.4 X10'3 (1.8-7.7); PLATELET COUNT 471 X10'3 (140-440); RED BLOOD COUNT 3.53 X10'6 (4.20-5.60); RED CELL DISTRIBUTION WIDTH 17.9 % (11.5-14.5); WHITE BLOOD COUNT 11.7 X10'3 (4.5-11.0)
[2018-03-23] MEDS ORDERED: predniSONE 20 mg tablet PO ONE (17:45)
[2018-03-23] MEDS ORDERED: DOXYCYCLINE 100MG CAPSULE PO ONE (17:45)
[2018-03-23 17:46] LABS: INR 0.9 INR; PARTIAL THROMBOPLASTIN TIME 26 SECONDS (22-32); PROTHROMBIN TIME 9.7 SECONDS (9.0-12.0)
[2018-03-23] MEDS ORDERED: PRED50TA PO (17:47)
[2018-03-23] MEDS ORDERED: DOXY100C2 PO (17:47)
[2018-03-23 17:50] LABS: ALANINE AMINOTRANSFERASE 14 U/L (12-78); ALBUMIN 3.2 G/DL (3.4-5.0); ALBUMIN/GLOBULIN RATIO 0.7 (1.1-1.5); ALKALINE PHOSPHATASE 80 IU/L (46-116); ANION GAP 4 (8-16); ASPARTATE AMINO TRANSFERASE 16 U/L (10-37); BILIRUBIN,TOTAL 0.3 MG/DL (0.1-1.0); BLOOD UREA NITROGEN 13 MG/DL (7-18); BUN/CREATININE RATIO 14.9 (6.6-38.0); CALCIUM 9.3 MG/DL (8.5-10.1); CHLORIDE 98 MMOL/L (99-107); CREATININE 0.87 MG/DL (0.40-0.90); GLUCOSE 90 MG/DL (70-104); POTASSIUM 4.3 MMOL/L (3.5-5.1); SODIUM 136 MMOL/L (135-145); TOTAL CARBON DIOXIDE 34.4 MMOL/L (24-32); TOTAL PROTEIN 7.8 G/DL (6.4-8.2); eGFR 66 ML/MIN
[2018-03-23 18:40] VITALS: BP 115/74
== END 2018-03-23 18:42 | disposition home or self-care (01) ==
LOC: ER 15:02
DX: J18.1 Lobar pneumonia, unspecified organism (principal); M54.6 Pain in thoracic spine; E78.00 Pure hypercholesterolemia, unspecified; J44.9 Chronic obstructive pulmonary disease, unspecified; K21.9 Gastro-esophageal reflux disease without esophagitis; F17.210 Nicotine dependence, cigarettes, uncomplicated; E03.9 Hypothyroidism, unspecified; G89.29 Other chronic pain; M81.0 Age-related osteoporosis without current pathological fracture; Z86.73 Personal history of transient ischemic attack (TIA), and cerebral infarction without residual deficits; Z90.49 Acquired absence of other specified parts of digestive tract; Z90.710 Acquired absence of both cervix and uterus; Z98.890 Other specified postprocedural states; Z56.0 Unemployment, unspecified; Z88.0 Allergy status to penicillin; Z88.5 Allergy status to narcotic agent; Z88.6 Allergy status to analgesic agent; Z88.1 Allergy status to other antibiotic agents; Z79.899 Other long term (current) drug therapy
CPT/HCPCS: 36415; 71101; 80053; 85025; 85610; 85730; 93005; 99285; J7512

== ENCOUNTER 2018-10-27 20:38 | Emergency (ER) | payer MEDICARE, MEDICAID ==
[~2018-10-27] VITALS: Ht 170.2 cm; Wt 46.2 kg
[~2018-10-27 20:38] MED LIST changes: +PRED50TA PO
[2018-10-27 21:18] LABS: BASOPHILS % (AUTO) 0.3 % (0-1); EOSINOPHILS # (AUTO) 0.7 X10'3 (0-0.9); EOSINOPHILS % (AUTO) 4.7 % (0-6); HEMATOCRIT 31.8 % (35.0-45.0); HEMOGLOBIN 10.3 g/dl (12.0-16.0); LYMPHOCYTES # (AUTO) 2.8 X10'3 (1.1-4.8); LYMPHOCYTES % (AUTO) 19.4 % (21-51); MEAN CORPUSCULAR HEMOGLOBIN 29.6 PG (27.0-31.0); MEAN CORPUSCULAR HGB CONC 32.4 g/dL (33.0-36.5); MEAN CORPUSCULAR VOLUME 91.2 FL (78-98); MEAN PLATELET VOLUME 7.2 FL (7.4-10.4); MONOCYTES # (AUTO) 1.1 X10'3 (0-0.9); MONOCYTES % (AUTO) 7.4 % (2-12); NEUTROPHILS # (AUTO) 9.7 X10'3 (1.8-7.7); NEUTROPHILS % (AUTO) 68.2 % (42-75); PLATELET COUNT 414 X10'3 (140-440); RED BLOOD COUNT 3.49 X10'6 (4.20-5.60); RED CELL DISTRIBUTION WIDTH 16.7 % (11.5-14.5); WHITE BLOOD COUNT 14.3 X10'3 (4.5-11.0)
[2018-10-27 21:38] LABS: ALANINE AMINOTRANSFERASE 19 U/L (12-78); ALBUMIN 3.1 G/DL (3.4-5.0); ALBUMIN/GLOBULIN RATIO 0.8 (1.1-1.5); ALKALINE PHOSPHATASE 96 IU/L (46-116); ANION GAP 5 (8-16); ASPARTATE AMINO TRANSFERASE 19 U/L (10-37); BILIRUBIN,TOTAL 0.2 MG/DL (0.1-1.0); BLOOD UREA NITROGEN 13 MG/DL (7-18); BUN/CREATININE RATIO 13.3 (6.6-38.0); CALCIUM 9.1 MG/DL (8.5-10.1); CHLORIDE 101 MMOL/L (99-107); CREATININE 0.98 MG/DL (0.40-0.90); GLUCOSE 84 MG/DL (70-104); POTASSIUM 3.4 MMOL/L (3.5-5.1); SODIUM 139 MMOL/L (135-145); TOTAL CARBON DIOXIDE 33.4 MMOL/L (24-32); eGFR 57 ML/MIN
[2018-10-27 21:44] LABS: PARTIAL THROMBOPLASTIN TIME 26 SECONDS (22-32)
--- NOTE | 2018-10-27 21:52 | NUR ---
PT IS RESTING QUIETLY ON GURNEY, SPEAKING 5-6 WORD SENTENCES, ON 11/01, PT SAID SHE LIVES WITH HER SON AND 3 YO GRANDDAUGHTER IN A HOUSE, THE [facility] IS GOING TO SELL THE HOUSE AND PT MUST FIND ANOTHER PLACE TO LIVE ON LIMITED INCOME, WAITING FOR LAB RESULTS
[2018-10-27] MEDS ORDERED: normal saline 1000ml 1,000 ML IV ONE (23:30)
[2018-10-27] MEDS ORDERED: methylPREDNISolone sod succ 125mg/2ml vial IV ONE (23:30)
[2018-10-27] MEDS ORDERED: CefTRIAXone inj 1,000 MG in normal saline 50ml IV soln 50 ML IV ONE (23:30)
[2018-10-27] MEDS ORDERED: ROPINIRole 1mg tablet PO SCH (23:30)
[2018-10-27] MEDS ORDERED: ROPINIRole 1mg tablet PO ONE (23:30)
[2018-10-28] MEDS ORDERED: PRED20TA PO (00:34)
[2018-10-28] MEDS ORDERED: DOXY100C2 PO (00:34)
[2018-10-28] MEDS ORDERED: ALBU18HF2 INH (00:34)
--- NOTE | 2018-10-28 01:31 | NUR ---
CALLED HER CONTACT MARLA [phone] HE IS COMING TO PICK HER UP.
[2018-10-28 01:39] VITALS: BP 117/77
== END 2018-10-28 02:24 | disposition home or self-care (01) ==
LOC: ER 20:38
DX: J44.1 Chronic obstructive pulmonary disease with (acute) exacerbation (principal); E78.00 Pure hypercholesterolemia, unspecified; K21.9 Gastro-esophageal reflux disease without esophagitis; E03.9 Hypothyroidism, unspecified; G89.29 Other chronic pain; M81.0 Age-related osteoporosis without current pathological fracture; F17.200 Nicotine dependence, unspecified, uncomplicated; Z56.0 Unemployment, unspecified; Z98.890 Other specified postprocedural states; Z90.49 Acquired absence of other specified parts of digestive tract; Z90.710 Acquired absence of both cervix and uterus; Z86.73 Personal history of transient ischemic attack (TIA), and cerebral infarction without residual deficits; Z88.0 Allergy status to penicillin; Z88.5 Allergy status to narcotic agent; Z88.1 Allergy status to other antibiotic agents; Z79.899 Other long term (current) drug therapy
CPT/HCPCS: 36415; 71045; 80053; 84484; 85025; 85610; 85730; 93005; 96365; 96375; 99284; J0696; J2930; J7040